=== PATIENT | female | born 1955 | race Caucasian/White ===

== ENCOUNTER 2023-12-25 06:20 | Inpatient (IN) | payer MEDICARE, OTHER, SELFPAY ==
[2023-12-19 08:09] VITALS: BMI 32.3
[2023-12-19 09:01] LABS: Hematocrit 43.6 % (37.0-47.0); Hemoglobin 14.5 g/dL (12.0-16.0); Mean Corp Hgb Conc. 33.3 g/dL (33.0-37.0); Mean Corpuscular Hgb 30.2 pg (27.0-31.0); Mean Corpuscular Volume 90.8 fL (81.0-99.0); Mean Platelet Volume 10.2 fL (7.4-10.4); Platelet Count 275 10^3/uL (130-400); White Blood Cell Count 5.8 10^3/uL (4.8-10.8)
[2023-12-19 09:43] LABS: ALT (SGPT) 16 U/L (0-35); AST (SGOT) 20 U/L (14-36); Alkaline Phosphatase 44 U/L (38-126); Blood Urea Nitrogen 11 mg/dl (7-17); Calcium 10.1 mg/dl (8.4-10.2); Carbon Dioxide 29 mmol/L (22-30); Chloride 101 mmol/L (98-107); Estimated Creatinine Clearance 67 ml/min; Glucose 109 mg/dl (70-99); Potassium 4.7 mmol/L (3.5-5.1); Sodium 140 mmol/L (135-145); Total Bilirubin 0.7 mg/dl (0.2-1.3); Total Protein 6.5 g/dl (6.3-8.2); eGFR > 60.00
[2023-12-19 09:55] LABS: Prealbumin (Transthyretin) 26.2 mg/dl (17.6-36.0)
[2023-12-19 10:55] LABS: Vitamin D, 25-OH*** 31.2 ng/mL (30-80)
--- NOTE | 2023-12-19 12:29 | PTCARENOTE ---
Patients 2/ EKG abnormal- reviewed by Dr. Carroll- requested cardiology Joseph cantu @ Dr. Lal office notified
[2023-12-25] VITALS (17 sets, daily range): BP systolic 20–150; BP diastolic 54–89; BMI 32.3
[2023-12-25] MEDS: NORMOSOL-R 1000 IV (09:24)
[2023-12-25] MEDS: TYLENOL 1000 MG PO (09:24)
[2023-12-25] MEDS: VANCOCIN 300 MG IV (09:30)
[2023-12-25] MEDS: VANCOCIN 300 ML IV (09:30)
[2023-12-25] MEDS: LOVENOX 40 MG SC (09:59)
--- NOTE | 2023-12-25 12:54 | W.IMMPOSTOP ---
Surgical Immed Post Op Note
-
Primary Surgeon: Melisa
Assisting Surgeon: None
Pre-op Diagnosis: Recurrent right breast cancer
Post-op Diagnosis: Same
Procedure Performed: Right simple mastectomy
Anesthesia Type: GET
Specimen / Cultures: Right breast
Estimated Blood Loss: 10cc
Complications: None
Operative Findings: None
[2023-12-25] MEDS: SUBLIMAZE 25 MCG IV (13:26)
[2023-12-25] MEDS: D5/0.45%NSS with KCL 20 MEQ 1000 IV (13:52)
--- NOTE | 2023-12-25 15:55 | PTCARENOTE ---
Pt arrived to 2S in bed. Full assessment completed. R breast incision C/D/I, dermabonded and maintained with 4x4 and surgical bra. R BAKARI drain with a small amount of output noted. Pt drowsy but easily arouses to verbal stimuli. Nasal cannula
maintained. Bed locked and in the lowest position, safety maintained. Oriented to room and call diego, spouse at bedside.
--- NOTE | 2023-12-25 16:03 | SUR.PHASEI ---
vss, in pacu - medicated x1 for pain, dressing dry, ice chips po and tolerating well. await room availability - updated. Transfer to [address] [place] [address] with report.
[2023-12-25] MEDS: ULTRAM 50 MG PO (17:27)
[2023-12-25] MEDS: COLACE 100 MG PO (21:19)
[2023-12-26] MEDS: D5/0.45%NSS with KCL 20 MEQ 1000 IV (03:33)
[2023-12-26 03:37] VITALS: BP 118/58
[2023-12-26] MEDS: SYNTHROID 100 MCG PO (06:25)
[2023-12-26] MEDS: ULTRAM 50 MG PO (06:27)
[2023-12-26 07:59] VITALS: BP 118/64
[2023-12-26] MEDS: ZYRTEC 10 MG PO (08:30)
[2023-12-26] MEDS: VITAMIN D3 (cholecalciferol) 25 MCG PO (08:30)
[2023-12-26] MEDS: PROTONIX 40 MG PO (08:31)
[2023-12-26] MEDS: COLACE 100 MG PO (08:31)
[2023-12-26] MEDS: PLAQUENIL 200 MG PO (08:31)
--- NOTE | 2023-12-26 09:14 | W.PN.UPDATE ---
Update Note
Progress Note Update
PT is POD #1 S/P right simple mastectomy for recurrent right breast carcinoma. She is sitting up in bed eating. She denies any pain. Flaps are viable with no [id number] of infection or necrosis.
Plan D/C to home with [facility] in place. Has post op appointment set with me.
--- NOTE | 2023-12-26 09:18 | W.DCSUMMARY ---
Discharge Summary
Discharge Data
Date of Admission: 12/25/23
Date of Discharge: 12/26/23
Total time spent discharging patient (in min): 15
-
Pending Results: Yes
Additional Pending Results:
pathology
Hospital Course
Recovered without incident.
Discharge Plan
-
Patient Disposition: Home (Routine Discharge)
Discharge Diagnosis/Procedures: Recurrent right breast ca
Condition: Good
Diet: No restrictions
Activity: No strenuous activity
Driving Restrictions: drive when you can make a defensive movement
Bathing Restrictions: OK to Shower
Other Services: [facility]
Wound Care: Ok to shower tomorrow. Pat chest dry and reapply dressings and some form of compression bra
Referrals:
Louise Bryan MD [Family Provider] -
Prescriptions:
Continued
cetirizine 10 MG tablet
10 mg PO DAILY
aspirin 81 MG tablet,delayed release (DR/EC)
81 mg PO DAILY
levothyroxine 100 MCG tablet
100 mcg PO DAILY
hydroxychloroquine 200 MG tablet
200 mg PO DAILY
omeprazole 20 mg Capsule,Delayed Release(Dr/Ec)
20 mg PO DAILY
naproxen sodium [Aleve] 220 mg Tablet
220 mg PO DAILY
cholecalciferol (vitamin D3) [Vitamin D3] 25 mcg (1,000 unit) Tablet,Chewable
25 mcg PO DAILY
krill oil 500 mg Capsule
500 mg PO DAILY
biotin 5,000 mcg Tablet, Sublingual
5,000 mcg SUBLINGUAL DAILY
Benefiber (guar gum)
1 tab PO DAILY
lutein-zeaxanthin
1 cap PO DAILY
lorazepam 0.5 mg Tablet
0.5 mg PO HS PRN (Reason: Insomnia/anxiety)
bromfenac [Prolensa] 0.07 % Drops
1 drp BOTH EYES DAILY
prednisol hrb-[id number]-[id number] 1-0.5-0.075 % Drops,Suspension
1 drp OPHTHALMIC (EYE) DAILY
--- NOTE | 2023-12-26 11:01 | CM ---
Chart reviewed. Spoke with pt at bedside
Pt lives with in multi-story home
No DME
Denies past SNF. Has had [facility] in past - unsure of agency
PCP - Dr. Olu Bryan
Pharm - [facility]
Will have ride at d/c
Discussed IMM
CM consulted for [facility] - no preference
Referred to [facility] - TT sent to liaison
Plan - d/c to home with [facility]
[2023-12-26 11:13] VITALS: BP 136/65
--- NOTE | 2023-12-26 12:45 | VNURNOTE ---
Home Health Liaison met with patient and spouse at 1130 to discuss [facility] nurse visits, schedule and homebound status. Patient is agreeable and understands that visits at home will be 2-3 x per week to assess and teach medical management and BAKARI drain
care.
[facility] brochure provided with contact information. Patient is aware that [facility] will contact them for start of care in 1-2 days after discharge from .
[facility] referral completed in [facility].
== END 2023-12-26 13:14 | disposition home health service (06) | DRG 583 ==
LOC: 2 SOUTH 06:20
PROVIDERS: ADMITTING PHYSICIAN Surgery; FAMILY PHYSICIAN Internal Medicine
PROC: 0HTT0ZZ Resection of Right Breast, Open Approach (ICD-10-PCS; 2023-12-25)
DX: C50.911 Malignant neoplasm of unspecified site of right female breast (principal); I10 Essential (primary) hypertension; E03.9 Hypothyroidism, unspecified; F41.9 Anxiety disorder, unspecified; K21.9 Gastro-esophageal reflux disease without esophagitis; H40.9 Unspecified glaucoma
CPT/HCPCS: 88307; 36415; 80053; 82306; 84134; 85027; 88341; 88342; 88360; 93005; C1729

== ENCOUNTER → 2024-01-30 13:20 | Outpatient (REF) | payer MEDICARE, OTHER, SELFPAY ==
[2024-01-30 15:39] VITALS: BP 163/82; BP_SYST 76
== END ==
LOC: RADI 13:20
PROVIDERS: ATTENDING PHYSICIAN Surgery; FAMILY PHYSICIAN Internal Medicine
DX: M96.843 Postprocedural seroma of a musculoskeletal structure following other procedure (principal); Y83.8 Other surgical procedures as the cause of abnormal reaction of the patient, or of later complication, without mention of misadventure at the time of the procedure
CPT/HCPCS: 10030; 87015; 87070; 87205; C1729; C1769

== ENCOUNTER → 2024-02-19 13:22 | Outpatient (REF) | payer MEDICARE, OTHER, SELFPAY | LOC: WDC 13:22 | PROVIDERS: ATTENDING PHYSICIAN Surgery | DX: C50.911 Malignant neoplasm of unspecified site of right female breast (principal); N64.89 Other specified disorders of breast | CPT/HCPCS: 76642 ==

== ENCOUNTER → 2024-02-22 07:51 | Outpatient (REF) | payer MEDICARE, OTHER, SELFPAY ==
[2024-02-22 08:21] VITALS: BP 135/67; BP_SYST 77
[2024-02-22 09:35] VITALS: BP 131/70; BP_SYST 65
== END ==
LOC: RADI 07:51
PROVIDERS: ATTENDING PHYSICIAN Surgery; FAMILY PHYSICIAN Internal Medicine
DX: L76.34 Postprocedural seroma of skin and subcutaneous tissue following other procedure (principal); Y83.4 Other reconstructive surgery as the cause of abnormal reaction of the patient, or of later complication, without mention of misadventure at the time of the procedure; Z90.11 Acquired absence of right breast and nipple
CPT/HCPCS: 10030

== ENCOUNTER → 2024-03-20 09:25 | Outpatient (REF) | payer MEDICARE, OTHER, SELFPAY | LOC: RCS 09:25 | PROVIDERS: ATTENDING PHYSICIAN Internal Medicine Cardiovascular Disease; FAMILY PHYSICIAN Internal Medicine | DX: R94.31 Abnormal electrocardiogram [ECG] [EKG] (principal); C50.911 Malignant neoplasm of unspecified site of right female breast; Z85.71 Personal history of Hodgkin lymphoma | CPT/HCPCS: 93306; 93356 ==

== ENCOUNTER → 2024-09-30 13:39 | Outpatient (REF) | payer MEDICARE, OTHER, SELFPAY | LOC: WDC 13:39 | PROVIDERS: ATTENDING PHYSICIAN Nurse Practitioner | DX: Z12.31 Encounter for screening mammogram for malignant neoplasm of breast (principal) | CPT/HCPCS: 77063; 77067 ==

== ENCOUNTER → 2024-10-29 15:40 | Outpatient (REF) | payer MEDICARE, OTHER, SELFPAY | LOC: HWRAD 15:40 | PROVIDERS: ATTENDING PHYSICIAN Internal Medicine Rheumatology; FAMILY PHYSICIAN Internal Medicine | DX: M25.551 Pain in right hip (principal); M25.552 Pain in left hip; M35.9 Systemic involvement of connective tissue, unspecified; M79.641 Pain in right hand; M79.642 Pain in left hand | CPT/HCPCS: 73130; 73523 ==

== ENCOUNTER → 2025-04-01 08:36 | Outpatient (REF) | payer MEDICARE, OTHER, SELFPAY | LOC: WDC 08:36 | PROVIDERS: ATTENDING PHYSICIAN Nurse Practitioner Adult Health; FAMILY PHYSICIAN Internal Medicine | DX: N63.10 Unspecified lump in the right breast, unspecified quadrant (principal); Z85.3 Personal history of malignant neoplasm of breast; C50.911 Malignant neoplasm of unspecified site of right female breast; N64.59 Other signs and symptoms in breast | CPT/HCPCS: 76642 ==

== ENCOUNTER 2025-07-08 07:00 | Outpatient (RCR) | payer MEDICARE, OTHER, SELFPAY | END 2025-07-08 23:59 | disposition home or self-care (01) | LOC: RPT 07:00 | PROVIDERS: ATTENDING PHYSICIAN Nurse Practitioner Adult Health; FAMILY PHYSICIAN Internal Medicine | DX: I97.2 Postmastectomy lymphedema syndrome (principal); C50.211 Malignant neoplasm of upper-inner quadrant of right female breast; L90.5 Scar conditions and fibrosis of skin; Z73.6 Limitation of activities due to disability; Z85.71 Personal history of Hodgkin lymphoma | CPT/HCPCS: 97140; 97163; 97530 ==

== ENCOUNTER 2025-08-10 10:01 | Outpatient (RCR) | payer MEDICARE, OTHER, SELFPAY | END 2025-08-10 23:59 | disposition home or self-care (01) | LOC: RPT 10:01 | PROVIDERS: ATTENDING PHYSICIAN Nurse Practitioner Adult Health; FAMILY PHYSICIAN Internal Medicine | DX: I97.2 Postmastectomy lymphedema syndrome (principal); C50.211 Malignant neoplasm of upper-inner quadrant of right female breast; L90.5 Scar conditions and fibrosis of skin; Z73.6 Limitation of activities due to disability; Z85.71 Personal history of Hodgkin lymphoma | CPT/HCPCS: 97110; 97112; 97140 ==

== ENCOUNTER 2025-08-20 09:54 | Outpatient (RCR) | payer MEDICARE, OTHER, SELFPAY | END 2025-08-20 11:20 | disposition home or self-care (01) | LOC: RPT 09:54 | PROVIDERS: ATTENDING PHYSICIAN Nurse Practitioner Adult Health; FAMILY PHYSICIAN Internal Medicine | DX: I97.2 Postmastectomy lymphedema syndrome (principal); C50.211 Malignant neoplasm of upper-inner quadrant of right female breast; L90.5 Scar conditions and fibrosis of skin; Z73.6 Limitation of activities due to disability; Z85.71 Personal history of Hodgkin lymphoma | CPT/HCPCS: 97110; 97112; 97140; 97530 ==

== ENCOUNTER → 2025-09-17 14:22 | Outpatient (REF) | payer MEDICARE, OTHER, SELFPAY | LOC: WDC 14:22 | PROVIDERS: ATTENDING PHYSICIAN Nurse Practitioner Adult Health; FAMILY PHYSICIAN Internal Medicine | DX: Z12.31 Encounter for screening mammogram for malignant neoplasm of breast (principal) | CPT/HCPCS: 77063; 77067 ==